=== PATIENT | male | born 1960 | race African-American/Black ===

== ENCOUNTER 2016-06-11 15:33 | Emergency (ER) | payer SELFPAY ==
[~2016-06-11] VITALS: Ht 185.4 cm; Wt 109.0 kg
[2016-06-11] MEDS ORDERED: LIDOCAINE HCL/EPINEPHRINE 1%-EPI 1:100,000 20 ML VIAL MC ONE (18:15)
[2016-06-11] MEDS ORDERED: BACITRACIN ZINC OINT UDPKT TOP ONE (18:15)
[2016-06-11] MEDS ORDERED: TETANUS, DIPHTHERIA, PERTUSSIS VAC/PF 0.5ML (>7YR OLD) IM ONE (18:15)
[2016-06-11] MEDS ORDERED: KETOROLAC 30MG/ML VIAL IM ONE (18:15)
[2016-06-11 19:43] VITALS: BP 133/70
== END 2016-06-11 19:55 | disposition home or self-care (01) ==
LOC: ER 15:34
DX: S01.511A Laceration without foreign body of lip, initial encounter (principal); M79.602 Pain in left arm; W01.0XXA Fall on same level from slipping, tripping and stumbling without subsequent striking against object, initial encounter; Y93.89 Activity, other specified; Y99.8 Other external cause status; Y92.89 Other specified places as the place of occurrence of the external cause
CPT/HCPCS: 12011; 90471; 90715; 96372; 99284; J1885; Z7610

== ENCOUNTER 2016-06-13 12:32 | Emergency (ER) | payer SELFPAY ==
[~2016-06-13] VITALS: Ht 185.4 cm; Wt 102.0 kg
[2016-06-13 12:45] VITALS: BP 154/90
[2016-06-13] MEDS ORDERED: BACITRACIN ZINC OINT UDPKT TOP ONE (13:30)
== END 2016-06-13 15:05 | disposition home or self-care (01) ==
LOC: ER 14:41
DX: Z48.01 Encounter for change or removal of surgical wound dressing (principal); Z98.890 Other specified postprocedural states
CPT/HCPCS: 99282

== ENCOUNTER 2016-06-20 08:55 | Emergency (ER) | payer SELFPAY ==
[~2016-06-20] VITALS: Ht 185.4 cm; Wt 109.0 kg
[2016-06-20 08:59] VITALS: BP 157/82
[2016-06-20] MEDS ORDERED: BACITRACIN ZINC OINT UDPKT TOP ONE (10:30)
== END 2016-06-20 10:41 | disposition home or self-care (01) ==
LOC: ER 09:52
DX: Z48.02 Encounter for removal of sutures (principal)
CPT/HCPCS: 99282; Z7610